=== PATIENT | female | born 2000 | race African-American/Black ===

== ENCOUNTER 2024-05-15 14:40 | Emergency (ER) | payer BC, OTHER ==
[2024-05-15] MEDS ORDERED: fentaNYL 50 mcg/mL 1 mL Vial ONE (15:50)
[2024-05-15 16:22] LABS: #Basophils Less than 0.03 10x3/uL (0.0-0.2); #Eosinophils 0.07 10x3/uL (0.0-0.5); #Monocytes 0.95 10x3/uL (0.0-1.1); #Neutrophils 9.56 10x3/uL (1.5-8.4); %Basophils 0.2 % (0.0-2.0); %Eosinophils 0.5 % (0.0-6.0); %Lymphocytes 18.2 % (18.0-47.0); %Monocytes 7.3 % (0.0-10.0); %Neutrophils 73.6 % (40.0-75.0); Hematocrit 39.4 % (34.9-44.5); Hemoglobin 13.2 g/dL (12.0-15.5); Mean Corpuscular HGB CONC 33.5 g/dL (32.0-36.0); Mean Corpuscular Hemoglobin 31.4 pg (27.0-33.0); Mean Corpuscular Volume 93.6 fL (81.6-98.3); Mean Platelet Volume 10.8 fL (7.4-10.4); Platelet Count 281 10x3/uL (150-450); RBC Distribution Width 12.7 % (11.5-14.5); Red Blood Cell (RBC) Count 4.21 10x6/uL (3.90-5.03); White Blood Cell (WBC) Count 12.99 10x3/uL (3.5-10.5)
[2024-05-15 16:40] LABS: ALT (SGPT) 12 U/L (Less than 34); AST (SGOT) 24 U/L (11-34); Albumin 4.2 g/dL (3.1-4.5); Alkaline Phosphatase 55 U/L (40-110); Anion Gap 14 mmol/L (10-20); BUN (Urea Nitrogen) 10 mg/dL (7.0-18.7); Bilirubin, Total 0.3 mg/dL (0.3-1.2); Calc. Creatinine Clearance 0 mL/min (70-130); Calcium 9.3 mg/dL (7.8-10.44); Carbon Dioxide 21 mmol/L (22-29); Chloride 107 mmol/L (98-107); Estimated GFR 102; Globulin 4.1 g/dL (2.4-3.5); Glucose 75 mg/dL (70-105); Lipase 38 U/L (8-78); Magnesium 1.7 mg/dL (1.6-2.6); Protein, Total 8.3 g/dL (6.0-8.3); Sodium 138 mmol/L (136-145)
[2024-05-15] MEDS ORDERED: traMADol HCl 50 MG TAB ONE (17:15)
== END 2024-05-15 17:28 | disposition home or self-care (01) ==
LOC: CSHERS 14:40
DX: O03.9 Complete or unspecified spontaneous abortion without complication (principal)
CPT/HCPCS: 36415; 80053; 83690; 83735; 84702; 85025; 86850; 86900; 86901; 96374; J3010